=== PATIENT | male | born 1965 | race Caucasian/White ===

== ENCOUNTER → 2024-07-20 | Outpatient (CLI) | payer OTHER, SELFPAY ==
--- NOTE | 2024-07-20 09:27 | US_ITS ---
PROCEDURE: US ABDOMEN LIMITED WITH ELASTOGRAPHY REASON FOR EXAM: FATTY LIVER COMPARISON: NONE AVAILABLE. TECHNIQUE: Right upper quadrant abdominal ultrasound. ElastQ Imaging shear wave elastography for non-invasive assessment of liver tissue stiffness.. FINDINGS: LIVER: Size: Unremarkable Length: 14.2 cm Echotexture: Hyperechogenic Contour: Normal Lesions: None identified Elastography: EQI Med: 11.2 kPa EQI Med [place]: 1.58 m/s GALLBLADDER: Normal COMMON BILE DUCT: Normal 0.27 cm in diameter.. PANCREAS: Normal Right kidney: Size measures 10.4 x 5.2 x 6.1 cm. Cortex measures 1.8 cm. US/ABD Limited w/ Elastography IMPRESSION: 1. Steatosis. 2. F 2 to F 3, moderate to severe likelihood of clinically significant hepatic fibrosis. Reference Values: SRU <1.37 m/s (5.7kPa): No to mild fibrosis 1.37 m/s - 2.2 m/s: Moderate to severe fibrosis >2.2 m/s (15kPa): Significant fibrosis / cirrhosis METAVIR Score F2 or higher: 1.34 m/s (5.7kPa) F3 or higher: 1.55 m/s (7.3kPa) F4: 1.80 m/s (10kPa) Reading Location: [facility]
== END | disposition home or self-care (01) ==
LOC: US 09:25
PROVIDERS: Referring Provider Nurse Practitioner Adult Health; Visit Provider Nurse Practitioner Adult Health
DX: K76.0 Fatty (change of) liver, not elsewhere classified (principal)
CPT/HCPCS: 76705; 76981